=== PATIENT | female | born 1935 | race Caucasian/White ===

== ENCOUNTER 2016-10-10 20:41 | Emergency (ER) | payer OTHER, MEDICARE ==
[~2016-10-10] VITALS: Ht 170.2 cm; Wt 55.3 kg
[~2016-10-10 20:41] MED LIST: BUDE6HFA INH; ESTR0.623 PO; LISI10TA5 PO; METO25TA3 PO; ROSU10TA PO; SPIRIVA INH; WARF2.5T2 PO
[2016-10-10 21:08] VITALS: BP_SYST 133
[2016-10-10] MEDS ORDERED: DIPH-TET-PERTUS Vaccine 0.5 ML VIAL (ADACEL) IM ONE (22:45)
[2016-10-11] MEDS ORDERED: LEVOFLOXACIN 500 MG TABLET PO ONE
[2016-10-11] MEDS ORDERED: CLINDAMYCIN HCL 150 MG CAPSULE PO ONE ×2 (00:30)
[2016-10-11 00:33] VITALS: BP_SYST 120
== END 2016-10-11 00:33 | disposition home or self-care (01) ==
LOC: SED 20:41
DX: S61.250A Open bite of right index finger without damage to nail, initial encounter (principal); J44.9 Chronic obstructive pulmonary disease, unspecified; I25.2 Old myocardial infarction; I10 Essential (primary) hypertension; Z88.0 Allergy status to penicillin; Z88.5 Allergy status to narcotic agent; W54.0XXA Bitten by dog, initial encounter; Y93.89 Activity, other specified; Y92.009 Unspecified place in unspecified non-institutional (private) residence as the place of occurrence of the external cause; Y99.8 Other external cause status
CPT/HCPCS: 90715; 99284